=== PATIENT | female | born 1985 | race Hispanic/Latino ===

== ENCOUNTER 2021-08-31 10:32 | Day surgery (SDC) | payer OTHER ==
[2021-08-31 11:44] VITALS: BMI 31.4
[2021-08-31 12:14] LABS: Creatinine, Urine Less than 20.00 mg/dL (47-110); Protein, Urine Random Quant Less than 10 mg/dL (1-14)
[2021-08-31 12:26] LABS: Hemoglobin 14.1 g/dL (12.0-15.5); Mean Corpuscular HGB CONC 34.2 g/dL (32.0-36.0); Mean Corpuscular Hemoglobin 31.4 pg (27.0-33.0); Mean Corpuscular Volume 91.8 fl (81.6-98.3); Mean Platelet Volume 9.9 fl (7.4-10.4); Platelet Count 299 10x3/uL (150-450); RBC Distribution Width 12.8 % (11.5-14.5); Red Blood Cell (RBC) Count 4.49 10x6/uL (3.90-5.03); White Blood Cell (WBC) Count 7.8 10x3/uL (3.5-10.5)
== END 2021-08-31 15:10 | disposition home health service (06) ==
LOC: CSHLD/OP 10:32
PROVIDERS: ATTEND Student in an Organized Health Care Education/Training Program
DX: O13.3 Gestational [pregnancy-induced] hypertension without significant proteinuria, third trimester (principal); O30.033 Twin pregnancy, monochorionic/diamniotic, third trimester; Z3A.35 35 weeks gestation of pregnancy
CPT/HCPCS: 36415; 82570; 84156; 84450; 85027

== ENCOUNTER 2021-09-04 10:14 | Outpatient (CLI) | payer OTHER ==
[2021-09-04 21:48] LABS: SARS-CoV-2 PCR by NAA Not Detected (NotDetected)
== END 2021-09-04 10:15 | disposition home or self-care (01) ==
LOC: CSHLAB 10:14
PROVIDERS: ATTEND Student in an Organized Health Care Education/Training Program
DX: Z20.822 Contact with and (suspected) exposure to COVID-19 (principal)
CPT/HCPCS: U0003; U0005

== ENCOUNTER 2021-09-07 05:30 | Inpatient (IN) | payer MEDICAID, OTHER ==
[2021-09-07] MEDS: Lactated Ringer's 1,000 ML IV SCH (06:25)
[2021-09-07] MEDS ORDERED: Methylergonovine 0.2 MG/ML VIAL IM PRN (06:33)
[2021-09-07] MEDS ORDERED: HYDROcodone/Acetaminophen 5/325 mg Tablet PO PRN ×3 (06:33→23:33)
[2021-09-07] MEDS ORDERED: hydrALAZINE 20 MG/ML VIAL SLOW IVP PRN ×2 (06:33→23:33)
[2021-09-07] MEDS ORDERED: Lidocaine 1% (PF) 30 ML VIAL SC PRN (06:33)
[2021-09-07] MEDS ORDERED: Misoprostol 200 MCG TAB PR PRN (06:33)
[2021-09-07] MEDS ORDERED: Diphenoxylate HCl/Atropine Tablet PO PRN (06:33)
[2021-09-07] MEDS ORDERED: Ondansetron PF 4 MG/2 ML Vial IVP PRN ×3 (06:33→23:33)
[2021-09-07] MEDS ORDERED: Acetaminophen 500 MG TAB PO PRN (06:33)
[2021-09-07] MEDS ORDERED: Ibuprofen 800 MG TAB PO PRN (06:33)
[2021-09-07] MEDS ORDERED: Butorphanol Tartrate 1 MG/ML VIAL SLOW IVP PRN (06:33)
[2021-09-07] MEDS ORDERED: NS w/ Oxytocin 30 units 500 ML IV SCH ×2 (06:33)
[2021-09-07] MEDS ORDERED: Carboprost 250 MCG/ML AMP IM PRN (06:33)
[2021-09-07] MEDS ORDERED: Promethazine HCl 25 MG/ML VIAL IM PRN ×3 (06:33→23:33)
[2021-09-07 06:34] VITALS: BMI 31.1
[2021-09-07 07:01] LABS: Hemoglobin 13.9 g/dL (12.0-15.5); Mean Corpuscular HGB CONC 34.8 g/dL (32.0-36.0); Mean Corpuscular Hemoglobin 31.3 pg (27.0-33.0); Mean Corpuscular Volume 89.9 fl (81.6-98.3); Mean Platelet Volume 10.3 fl (7.4-10.4); Platelet Count 271 10x3/uL (150-450); RBC Distribution Width 12.7 % (11.5-14.5); Red Blood Cell (RBC) Count 4.44 10x6/uL (3.90-5.03); White Blood Cell (WBC) Count 6.4 10x3/uL (3.5-10.5)
[2021-09-07 07:31] LABS: Syphilis Antibody Nonreactive (Nonreactive); Syphilis Antibody Index 0.04 S/CO (<1.00 Non-Reactive)
[2021-09-07 07:33] LABS: HBSAg Index 0.23 S/CO (0-0.99); Hep B Surf Ag Non-Reactive S/CO (NonReactive)
[2021-09-07] MEDS ORDERED: Bupivacaine/Epinephrine 0.25% 30 ML VIAL ONE (08:00)
[2021-09-07 11:42] LABS: ALT (SGPT) 28 U/L (8-55); AST (SGOT) 25 U/L (5-34); Albumin 3.4 g/dL (3.5-5.0); Alkaline Phosphatase 274 U/L (40-110); Anion Gap 15 mmol/L (10-20); BUN (Urea Nitrogen) 6 mg/dL (7.0-18.7); Bilirubin, Total 0.7 mg/dL (0.2-1.2); Calc. Creatinine Clearance 174 mL/min (70-130); Calcium 9.3 mg/dL (7.8-10.44); Carbon Dioxide 18 mmol/L (22-29); Chloride 105 mmol/L (98-107); Globulin 2.9 g/dL (2.4-3.5); Glucose 124 mg/dL (70-105); Potassium 3.6 mmol/L (3.5-5.1); Protein, Total 6.3 g/dL (6.0-8.3); Sodium 134 mmol/L (136-145)
[2021-09-07] MEDS ORDERED: Fentanyl 2 mcg/Bup 0.1% Cadd 100 ML ONE (17:15)
[2021-09-07] MEDS ORDERED: Lactated Ringer's 500 ML IV PRN (18:02)
[2021-09-07] MEDS ORDERED: Acetaminophen 325 MG TAB PO PRN (18:02)
[2021-09-07] MEDS ORDERED: ePHEDrine Sulfate 50 MG/10 ML VIAL SLOW IVP PRN (18:02)
[2021-09-07] MEDS ORDERED: Naloxone HCl 0.4 mg/ml Vial IVP PRN ×2 (18:02)
[2021-09-07] MEDS ORDERED: Hydrocerin (Eucerin) Cream 120 gm Jar TOP PRN (18:02)
[2021-09-07] MEDS ORDERED: diphenhydrAMINE 50 MG/ML VIAL IVP PRN (18:02)
[2021-09-07] MEDS ORDERED: Fentanyl 2 mcg/Bupivacaine 0.1% Cassette 100 ML EPIDURAL SCH (18:15)
[2021-09-07] MEDS ORDERED: Communication Order-Pharmacy FS SCH (18:15)
[2021-09-07] MEDS ORDERED: Benzocaine-Menthol 82.5 ML CAN TOP PRN (23:33)
[2021-09-07] MEDS ORDERED: Milk Of Magnesia 30 ML UDCUP PO PRN (23:33)
[2021-09-07] MEDS ORDERED: Bisacodyl 10 MG SUPP PR PRN (23:33)
[2021-09-07] MEDS ORDERED: Boostrix 0.5 ML (Tdap) VIAL IM ONE (23:33)
[2021-09-07] MEDS ORDERED: diphenhydrAMINE 25 MG CAP PO PRN (23:33)
[2021-09-07] MEDS ORDERED: Lanolin Ointment 7 GM TUBE TOP PRN (23:33)
[2021-09-07] MEDS ORDERED: Preparation H Ointment 28 GM TUBE PR PRN (23:33)
[2021-09-08] MEDS ORDERED: Ibuprofen 800 MG TAB PO SCH (00:30)
[2021-09-08] MEDS: Lactated Ringer's 1,000 ML IV SCH (01:05)
[2021-09-08 04:55] LABS: Hemoglobin 13.4 g/dL (12.0-15.5); Mean Corpuscular HGB CONC 34.7 g/dL (32.0-36.0); Mean Corpuscular Hemoglobin 31.2 pg (27.0-33.0); Mean Corpuscular Volume 89.8 fl (81.6-98.3); Mean Platelet Volume 10.2 fl (7.4-10.4); Platelet Count 255 10x3/uL (150-450); RBC Distribution Width 12.9 % (11.5-14.5); White Blood Cell (WBC) Count 12.8 10x3/uL (3.5-10.5)
[2021-09-08] MEDS: Ibuprofen 800 MG TAB PO SCH ×3 (05:15→21:13)
[2021-09-08] MEDS: Ferrous Sulfate 325 MG TAB PO SCH ×2 (08:04→17:05)
[2021-09-08] MEDS: Docusate 100 MG CAP PO SCH ×2 (08:42→21:13)
[2021-09-08] MEDS: Prenatal Vitamin 1 TAB PO SCH (08:42)
[2021-09-09] MEDS: Ibuprofen 800 MG TAB PO SCH ×2 (06:14→13:23)
[2021-09-09] MEDS: Ferrous Sulfate 325 MG TAB PO SCH (08:27)
[2021-09-09 08:39] VITALS: BP 140/69; TEMP 97.9
[2021-09-09] MEDS: Docusate 100 MG CAP PO SCH (08:55)
[2021-09-09] MEDS: Prenatal Vitamin 1 TAB PO SCH (08:55)
== END 2021-09-09 13:58 | disposition home or self-care (01) | DRG 807 ==
LOC: CSHLD 05:43 → CSHPP 23:35
PROVIDERS: ADMIT Student in an Organized Health Care Education/Training Program; ATTEND Student in an Organized Health Care Education/Training Program
PROC: 10D07Z6 Extraction of Products of Conception, Vacuum, Via Natural or Artificial Opening (ICD-10-PCS; principal; 2021-09-07)
PROC: 10907ZC Drainage of Amniotic Fluid, Therapeutic from Products of Conception, Via Natural or Artificial Opening (ICD-10-PCS; 2021-09-07)
PROC: 3E033VJ Introduction of Other Hormone into Peripheral Vein, Percutaneous Approach (ICD-10-PCS; 2021-09-07)
DX: O60.14X2 Preterm labor third trimester with preterm delivery third trimester, fetus 2 (principal); Z37.2 Twins, both liveborn; O60.14X1 Preterm labor third trimester with preterm delivery third trimester, fetus 1; O30.033 Twin pregnancy, monochorionic/diamniotic, third trimester; Z3A.36 36 weeks gestation of pregnancy; O76 Abnormality in fetal heart rate and rhythm complicating labor and delivery; O32.4XX0 Maternal care for high head at term, not applicable or unspecified
CPT/HCPCS: 36415; 51702; 80053; 85027; 86780; 86850; 86900; 86901; 87340; J2590; J7120

== ENCOUNTER 2021-11-24 10:51 | Outpatient (CLI) | payer OTHER ==
[2021-11-24 11:44] LABS: Hemoglobin 14.1 g/dL (12.0-15.5); Mean Corpuscular HGB CONC 33.7 g/dL (32.0-36.0); Mean Corpuscular Hemoglobin 30.2 pg (27.0-33.0); Mean Corpuscular Volume 89.5 fl (81.6-98.3); Mean Platelet Volume 8.6 fl (7.4-10.4); Platelet Count 336 10x3/uL (150-450); RBC Distribution Width 13.3 % (11.5-14.5); Red Blood Cell (RBC) Count 4.67 10x6/uL (3.90-5.03); White Blood Cell (WBC) Count 5.2 10x3/uL (3.5-10.5)
[2021-11-24 12:29] LABS: BHCG - Serum Negative (NEGATIVE); Pregs Control Background? CLEAR/WHITE (CLR/WHITE); Pregs Control Bar Appear? YES (CONTROL BAR)
[2021-11-24 23:58] LABS: SARS-CoV-2 PCR by NAA Not Detected (NotDetected)
== END 2021-11-24 10:52 | disposition home or self-care (01) ==
LOC: CSHLAB 10:51
PROVIDERS: ATTEND Student in an Organized Health Care Education/Training Program
DX: Z01.812 Encounter for preprocedural laboratory examination (principal); Z20.822 Contact with and (suspected) exposure to COVID-19; Z40.03 Encounter for prophylactic removal of fallopian tube(s); Z80.41 Family history of malignant neoplasm of ovary
CPT/HCPCS: 84703; 85027; U0003; U0005

== ENCOUNTER 2021-11-29 09:59 | Day surgery (SDC) | payer OTHER ==
[2021-11-24 12:15] VITALS: BMI 27.3
[2021-11-29] MEDS ORDERED: Lidocaine 1% MPF 2 ML VIAL ONE (10:20)
[2021-11-29] MEDS ORDERED: CeleCOXIB 100 MG CAP ONE (10:20)
[2021-11-29] MEDS ORDERED: Bupivacaine PF 0.5% 30 ML VIAL ONE (11:36)
[2021-11-29] MEDS ORDERED: EPINEPHrine 1 MG/ML AMP ONE (11:36)
[2021-11-29] MEDS ORDERED: ceFAZolin 2 GM/Dextrose 50 ML IVPB ONE (12:07)
[2021-11-29] MEDS ORDERED: Lidocaine 1% PF 5 ML VIAL ONE (12:11)
[2021-11-29] MEDS ORDERED: Rocuronium Bromide 10 MG/ML (10ML VIAL) ONE (12:11)
[2021-11-29] MEDS ORDERED: PROPOFOL 20 ML ONE (12:12)
[2021-11-29] MEDS ORDERED: Fentanyl 100 MCG/2 ML VIAL ONE ×2 (12:12→12:34)
[2021-11-29] MEDS ORDERED: Dexamethasone 4 mg/ml Vial ONE (12:51)
[2021-11-29] MEDS ORDERED: Ondansetron PF 4 MG/2 ML Vial ONE (12:51)
[2021-11-29] MEDS ORDERED: diphenhydrAMINE 50 MG/ML VIAL ONE (12:51)
[2021-11-29] MEDS ORDERED: Ketorolac Tromethamine 30 MG/ML VIAL ONE (12:54)
[2021-11-29] MEDS ORDERED: Silver Nitrate Application 1 EACH ONE (13:09)
== END 2021-11-29 15:10 | disposition home or self-care (01) ==
LOC: CSHSDC 09:59
PROVIDERS: ATTEND Student in an Organized Health Care Education/Training Program
PROC: 0UT74ZZ Resection of Bilateral Fallopian Tubes, Percutaneous Endoscopic Approach (ICD-10-PCS; principal; 2021-11-29)
DX: Z30.2 Encounter for sterilization (principal); Z80.3 Family history of malignant neoplasm of breast
CPT/HCPCS: 36415; 86850; 86900; 86901; 88307; J0171; J0690; J1100; J1200; J1885; J2405; J2704; J3010; S0020